=== PATIENT | male | born 1970 | race Caucasian/White ===

== ENCOUNTER 2018-02-19 23:26 | Emergency (ER) | payer OTHER ==
[~2018-02-19] VITALS: Ht 180.3 cm; Wt 117.9 kg
[~2018-02-19 23:26] MED LIST: HYZAAR 50/12.51 TAB
[2018-02-19] MEDS ORDERED: PANADOL EXTRA500 MG (23:34)
[2018-02-19] MEDS ORDERED: SEROQUEL25 MG (23:34)
[2018-02-20] MEDS ORDERED: KETO10TA2 PO (08:18)
[2018-02-20] MEDS ORDERED: TAMS0.4C PO (08:18)
== END 2018-02-20 08:26 | disposition home or self-care (01) ==
LOC: ER 23:26
DX: N20.0 Calculus of kidney (principal); K76.0 Fatty (change of) liver, not elsewhere classified

== ENCOUNTER 2019-07-16 17:15 | Emergency (ER) | payer OTHER ==
[~2019-07-16] VITALS: Ht 180.3 cm; Wt 117.9 kg
[~2019-07-16 17:15] MED LIST changes: +KETO10TA2 PO; +PANADOL EXTRA500 MG; +SEROQUEL25 MG; +TAMS0.4C PO
== END 2019-07-16 20:26 | disposition home or self-care (01) ==
LOC: ER 17:15
DX: B34.8 Other viral infections of unspecified site (principal)

== ENCOUNTER 2019-11-27 08:32 | Outpatient (CLI) | payer OTHER | END 2019-11-27 08:33 | disposition home or self-care (01) | LOC: SONOGRAMA 08:32 | DX: S46.002A Unspecified injury of muscle(s) and tendon(s) of the rotator cuff of left shoulder, initial encounter (principal) ==

== ENCOUNTER 2023-06-19 17:17 | Emergency (ER) | payer OTHER ==
[~2023-06-19] VITALS: Ht 172.7 cm; Wt 111.1 kg
== END 2023-06-19 18:30 | disposition home or self-care (01) ==
LOC: ER 17:17
DX: J06.9 Acute upper respiratory infection, unspecified (principal); Z20.822 Contact with and (suspected) exposure to COVID-19